=== PATIENT | male | born 1975 | race Caucasian/White ===

== ENCOUNTER 2018-07-01 17:42 | Emergency (ER) | payer BC ==
[~2018-07-01] VITALS: Ht 188 cm; Wt 122.5 kg
[2018-07-01 17:58] VITALS: BP 134/78
[2018-07-01] MEDS: traMADol 50 MG TAB PO ONE (18:42)
[2018-07-01] MEDS: KETOROLAC 60 MG/2 ML VIAL IM ONE (18:43)
[2018-07-01 19:09] VITALS: BP 131/76
== END 2018-07-01 19:09 | disposition home or self-care (01) ==
LOC: MED 17:42
DX: S93.402A Sprain of unspecified ligament of left ankle, initial encounter (principal); X58.XXXA Exposure to other specified factors, initial encounter; Y93.01 Activity, walking, marching and hiking; Y92.89 Other specified places as the place of occurrence of the external cause; Y99.8 Other external cause status
CPT/HCPCS: 29515; 73610; 99283; Q0092; J1885

== ENCOUNTER 2018-09-01 13:09 | Emergency (ER) | payer BC ==
[~2018-09-01] VITALS: Ht 182.9 cm; Wt 127.0 kg
[2018-09-01 13:30] VITALS: BP 123/88
--- NOTE | 2018-09-01 13:34 | NUR ---
AAO X4 43 YR OLD M WITH C/O SORE THROAT WITH DIFFICULTY SWALLOWING 6/ 10 AND DRY NON PRODUCTIVE COUGH X 6 WKS, LT EAR PAIN 8/10 HEAD ACHE 7/10 X 1 WK WITH DIZZINESS. - SOB, ACCESSORY MUSCLE USE, SPEAKS FULL SENTENCES, SPO2 98% ON ROOM AIR. VSS; PATIENT POSITIONED FOR COMFORT; HOB ELEVATED; BEDRAILS UP X2; BED DOWN.
--- NOTE | 2018-09-01 13:44 | NUR ---
AFTER COLLECTING STREP SAMPLE, PT AMBULATES BACK TO THE LOBBY WITHOUT DIFFICULTY
--- NOTE | 2018-09-01 14:51 | NUR ---
SWABS IN LAB
[2018-09-01 16:00] VITALS: BP 119/87
--- NOTE | 2018-09-01 16:00 | NUR ---
Patient discharged with v/s stable. Written and verbal after care instructions given and explained. Patient alert, oriented and verbalized understanding of instructions. Ambulatory with steady gait. All questions addressed prior to discharge. ID band removed. Patient advised to follow up with PMD. Rx of LORATADINE 10MG given. Patient educated on indication of medication including possible reaction and side effects. Opportunity to ask questions provided and answered.
== END 2018-09-01 16:00 | disposition home or self-care (01) ==
LOC: MED 13:09
DX: J02.9 Acute pharyngitis, unspecified (principal); H65.92 Unspecified nonsuppurative otitis media, left ear; Z90.49 Acquired absence of other specified parts of digestive tract
CPT/HCPCS: 87081; 99283